=== PATIENT | male | born 1945 | race Caucasian/White ===

== ENCOUNTER 2024-11-04 17:20 | Observation (INO) | payer MEDICARE ==
[~2024-11-04] VITALS: Ht 172.7 cm; Wt 57.6 kg
[2024-11-04] MEDS: NS (Normal Saline) 0.9% 1,000 ML IV ONE (18:20)
[2024-11-04 18:26] LABS: VENOUS BASE EXCESS -8.9 (-2.0-2.0); VENOUS HCO3 18.5 MMOL/L (23.0-27.0); VENOUS O2 SATURATION 66.2 % (60.0-80.0); VENOUS PARTIAL PRESSURE CO2 46.2 mmHg (38.0-50.0); VENOUS PARTIAL PRESSURE O2 38.9 mmHg (30.0-50.0); VENOUS PH 7.220 UNITS (7.330-7.430); VENOUS STANDARD HCO3 16.8 MMOL/L; VENOUS TOTAL CO2 19.9 MMOL/L (24.0-28.0)
[2024-11-04 18:30] LABS: BASO # 0.0 10^3/uL (0.0-0.2); BASO % 0.5 % (0.0-1.0); EOS # 0.1 10^3/uL (0.0-0.5); EOS % 1.6 % (0.0-3.0); LYMPH # 0.9 10^3/uL (1.5-5.0); LYMPH % 15.8 % (24.0-44.0); MONO # 0.6 10^3/uL (0.0-0.8); MONO % 10.6 % (2.0-8.0); NEUTROPHILS # 3.9 10^3/uL (1.5-8.5); NEUTROPHILS % 70.8 % (36.0-66.0); PLATELET COUNT, AUTOMATED 232 10^3/uL (150-450)
[2024-11-04] MEDS: PIPERACILLIN/TAZOBACTAM SOD 4.5 GM in DEXTROSE 5% (D5W) ADV/MINI-BAG 50 ML IV ONE (18:30)
[2024-11-04 18:35] LABS: INR 0.95
[2024-11-04 18:40] LABS: APPEARANCE, URINE CLOUDY (CLEAR); BACTERIA, URINE AUTO 2+ (NEGATIVE); BILIRUBIN, URINE AUTO NEGATIVE (NEGATIVE); BLOOD, URINE BLOOD NEGATIVE (NEGATIVE); GLUCOSE, URINE (UA) AUTO NEGATIVE (NEGATIVE); KETONE, URINE AUTO NEGATIVE (NEGATIVE); LEUKOCYTE ESTERASE, URINE AUTO 2+ (NEGATIVE); MUCUS, URINE SMALL (NEGATIVE); NITRITE, URINE AUTO POSITIVE (NEGATIVE); PROTEIN, URINE AUTO 1+ mg/dL (NEGATIVE); RBC, URINE AUTO 0 /HPF (0-3); SPECIFIC GRAVITY URINE AUTO 1.012 (1.002-1.035); SQUAMOUS EPITHELIAL CELL UR AU 0 /HPF (0-6); UROBILINOGEN, URINE AUTO 0.2 mg/dL (0.0-2.0); WBC, URINE AUTO 10 /HPF (0-3)
[2024-11-04 19:01] LABS: CK-MB VALUE MASS 3.2 NG/ML (<3.6)
[2024-11-04 19:02] LABS: C REACTIVE PROTEIN QUANTITATIV < 0.50 MG/DL (<1.0); CPK CREATINE PHOSPHOKINASE 26 U/L (46-171); MB/CK RELATIVE INDEX 12.30 (< OR =4)
[2024-11-04 19:12] LABS: ALT/SGPT < 9 U/L (7.0-40); AST/SGOT 13 U/L (<34); CALCIUM LEVEL 7.6 MG/DL (8.3-10.6); CARBON DIOXIDE LEVEL 20 MMOL/L (20-31); CHLORIDE LEVEL 109 MMOL/L (98-107); CREATININE FOR GFR 1.12 MG/DL (0.70-1.30); GLOMERULAR FILTRATION RATE 66.8 (>42); POTASSIUM SERUM 2.7 MMOL/L (3.5-5.1); SODIUM LEVEL 145 MMOL/L (136-145)
[2024-11-04] MEDS ORDERED: VANCOMYCIN HCL 1,000 MG in IV FLUID PLACE HOLDER 1 EA IV ONE (19:20)
[2024-11-04] MEDS: [UNRECOGNIZED DRUG - OTHER] IV ONE (19:49)
[2024-11-04] MEDS: NS 0.9% IV ONE (19:49)
[2024-11-04] MEDS: MAG SULF 1GM/100ML (MAG RUN) 1 GM in IV 1 EA IV ONE (19:50)
[2024-11-04] MEDS: KCL 10MEQ/100ML SWI (KRUN) 10 MEQ in IV 1 EA IV ONE (19:52)
[2024-11-04 19:54] LABS: CK-MB VALUE MASS 2.6 NG/ML (<3.6)
[2024-11-04 19:58] LABS: CPK CREATINE PHOSPHOKINASE 34 U/L (46-171); MB/CK RELATIVE INDEX 7.64 (< OR =4)
[2024-11-04] MEDS: VANCOMYCIN HCL 1,000 MG, VIAL MATE ADAPTER 1 EACH in NS 250 ML IV ONE (20:01)
[2024-11-04] MEDS: POTASSIUM CHLORIDE 10% LIQ 20MEQ/15ML UDC PO ONE (20:03)
[2024-11-04] MEDS: NS 500 ML IV ONE (22:00)
[2024-11-04] MEDS ORDERED: D31000CA5 PO (22:12)
[2024-11-04] MEDS ORDERED: POTA-151 PO (22:12)
[2024-11-04] MEDS ORDERED: FURO20TA2 PO (22:12)
[2024-11-04] MEDS ORDERED: CALC0.5C6 PO (22:12)
[2024-11-04] MEDS ORDERED: LOPE1CAP5 PO (22:12)
[2024-11-04] MEDS ORDERED: HOME MED LIST COMPLETE! XX SCH (22:15)
[2024-11-04] MEDS ORDERED: MOM 30 ML SUSPENSION UDC PO PRN (22:50)
[2024-11-04] MEDS ORDERED: MAALOX 30 ML SUSP *UDC PO PRN (22:50)
[2024-11-05] MEDS: ceFAZolin SOD 1 GM in DEXTROSE 5% (D5W) ADV/MINI-BAG 50 ML IV SCH (00:30)
[2024-11-05 04:49] VITALS: BP 109/64; TEMP 97.2; O2SAT 97
[2024-11-05 06:13] LABS: PLATELET COUNT, AUTOMATED 228 10^3/uL (150-450)
[2024-11-05 07:03] LABS: CALCIUM LEVEL 7.4 MG/DL (8.3-10.6); CARBON DIOXIDE LEVEL 19.0 MMOL/L (20-31); CHLORIDE LEVEL 113.0 MMOL/L (98-107); CREATININE FOR GFR 1.02 MG/DL (0.70-1.30); GLOMERULAR FILTRATION RATE 74.8 (>42); POTASSIUM SERUM 3.7 MMOL/L (3.5-5.1); SODIUM LEVEL 147.0 MMOL/L (136-145)
[2024-11-05 07:16] VITALS: BP 116/66; TEMP 97; O2SAT 100
[2024-11-05] MEDS: DOCUSATE SODIUM 100 MG CAPSULE PO SCH (08:53)
[2024-11-05] MEDS: POTASSIUM CHLORIDE 10MEQ SR TABLET PO SCH (08:53)
[2024-11-05] MEDS: HEPARIN SOD 5000 UNITS/ML 1 ML VIAL/SYRINGE SC SCH (08:54)
[2024-11-05 15:34] VITALS: BP 112/56; TEMP 97.2; O2SAT 98
[2024-11-05] MEDS: KETOROLAC 30 MG/ML 1 ML VIAL IV ONE (19:00)
[2024-11-05 20:03] VITALS: BP 110/57; TEMP 97.7; O2SAT 97
[2024-11-05] MEDS: LIDOCAINE 5% PATCH TD ONE (21:37)
[2024-11-05] MEDS: ACETAMINOPHEN 325 MG TAB PO PRN (21:39)
[2024-11-06 05:10] VITALS: BP 100/64; TEMP 97.5; O2SAT 95
[2024-11-06 06:46] LABS: BASO # 0.0 10^3/uL (0.0-0.2); BASO % 0.9 % (0.0-1.0); EOS # 0.1 10^3/uL (0.0-0.5); EOS % 2.0 % (0.0-3.0); LYMPH # 0.8 10^3/uL (1.5-5.0); LYMPH % 17.5 % (24.0-44.0); MONO # 0.4 10^3/uL (0.0-0.8); MONO % 9.6 % (2.0-8.0); NEUTROPHILS # 3.2 10^3/uL (1.5-8.5); NEUTROPHILS % 69.3 % (36.0-66.0); PLATELET COUNT, AUTOMATED 211 10^3/uL (150-450)
[2024-11-06 07:05] LABS: ALT/SGPT 10.0 U/L (7.0-40); AST/SGOT 15.0 U/L (<34); CALCIUM LEVEL 6.9 MG/DL (8.3-10.6); CARBON DIOXIDE LEVEL 21.0 MMOL/L (20-31); CHLORIDE LEVEL 113.0 MMOL/L (98-107); CREATININE FOR GFR 0.96 MG/DL (0.70-1.30); GLOMERULAR FILTRATION RATE 80.4 (>42); MAGNESIUM LEVEL 1.4 MG/DL (1.8-2.4); POTASSIUM SERUM 3.4 MMOL/L (3.5-5.1); SODIUM LEVEL 145.0 MMOL/L (136-145)
[2024-11-06 12:05] VITALS: BP 99/64; TEMP 97.5; O2SAT 96
[2024-11-06] MEDS: POTASSIUM CHLORIDE 10MEQ SR TABLET PO ONE (14:45)
[2024-11-06] MEDS: MAG SULF 1GM/100ML (MAG RUN) 1 GM in IV 1 EA IV SCH (14:46)
[2024-11-06 20:13] VITALS: BP 116/71; TEMP 97.7; O2SAT 99
[2024-11-07 04:40] VITALS: BP 102/61; TEMP 97; O2SAT 96
[2024-11-07 06:03] LABS: BASO # 0.0 10^3/uL (0.0-0.2); BASO % 0.5 % (0.0-1.0); EOS # 0.1 10^3/uL (0.0-0.5); EOS % 1.8 % (0.0-3.0); LYMPH # 1.0 10^3/uL (1.5-5.0); LYMPH % 17.9 % (24.0-44.0); MONO # 0.5 10^3/uL (0.0-0.8); MONO % 8.8 % (2.0-8.0); NEUTROPHILS # 3.9 10^3/uL (1.5-8.5); NEUTROPHILS % 70.1 % (36.0-66.0); PLATELET COUNT, AUTOMATED 225 10^3/uL (150-450)
[2024-11-07 06:26] LABS: ALT/SGPT < 9 U/L (7.0-40); AST/SGOT 11 U/L (<34); CALCIUM LEVEL 7.1 MG/DL (8.3-10.6); CARBON DIOXIDE LEVEL 17 MMOL/L (20-31); CHLORIDE LEVEL 117 MMOL/L (98-107); CREATININE FOR GFR 0.93 MG/DL (0.70-1.30); GLOMERULAR FILTRATION RATE 83.5 (>42); MAGNESIUM LEVEL 1.8 MG/DL (1.8-2.4); POTASSIUM SERUM 4.0 MMOL/L (3.5-5.1); SODIUM LEVEL 148 MMOL/L (136-145)
[2024-11-07] MEDS ORDERED: LOPERAMIDE 2 MG CAPLET PO PRN (08:15)
[2024-11-07] MEDS: MIDODRINE 5 MG TAB PO SCH (08:41)
[2024-11-07 11:27] VITALS: BP 100/68; TEMP 97.6; O2SAT 73
[2024-11-07 11:30] VITALS: O2SAT 90
[2024-11-07 16:20] VITALS: BP 110/59; TEMP 97.8; O2SAT 98
[2024-11-07 20:16] VITALS: BP 109/67; TEMP 97; O2SAT 97
[2024-11-07] MEDS: CEFDINIR 300 MG CAP PO SCH (20:31)
[2024-11-08 04:38] VITALS: BP 108/66; TEMP 97.9; O2SAT 98
[2024-11-08 05:54] LABS: BASO # 0.0 10^3/uL (0.0-0.2); BASO % 0.8 % (0.0-1.0); EOS # 0.1 10^3/uL (0.0-0.5); EOS % 1.8 % (0.0-3.0); LYMPH # 0.9 10^3/uL (1.5-5.0); LYMPH % 17.4 % (24.0-44.0); MONO # 0.4 10^3/uL (0.0-0.8); MONO % 8.7 % (2.0-8.0); NEUTROPHILS # 3.6 10^3/uL (1.5-8.5); NEUTROPHILS % 70.7 % (36.0-66.0); PLATELET COUNT, AUTOMATED 222 10^3/uL (150-450)
[2024-11-08 06:17] LABS: CORTISOL AM 15.9 UG/DL (4.3-22.4)
[2024-11-08 06:22] LABS: CALCIUM LEVEL 6.8 MG/DL (8.3-10.6); CARBON DIOXIDE LEVEL 18.0 MMOL/L (20-31); CHLORIDE LEVEL 116.0 MMOL/L (98-107); CREATININE FOR GFR 0.93 MG/DL (0.70-1.30); GLOMERULAR FILTRATION RATE 83.5 (>42); POTASSIUM SERUM 4.3 MMOL/L (3.5-5.1); SODIUM LEVEL 145.0 MMOL/L (136-145)
[2024-11-08 08:17] VITALS: BP 109/65
[2024-11-08] MEDS ORDERED: CEFD300CAP PO (10:58)
[2024-11-08] MEDS ORDERED: TORS10TA3 PO (10:58)
[2024-11-08] MEDS ORDERED: MIDO5TA PO (10:58)
[2024-11-08 12:00] VITALS: BP 100/61; TEMP 97.7; O2SAT 94
== END 2024-11-08 13:05 | disposition home or self-care (01) ==
LOC: M ED 17:20 → M ED INP 17:21 → M PCU 11-05 04:48 → M MSPAV 11-05 15:24
PROVIDERS: ADMIT Student in an Organized Health Care Education/Training Program; ATTEND Internal Medicine Nephrology
DX: R60.0 Localized edema (principal); M79.89 Other specified soft tissue disorders; I87.8 Other specified disorders of veins; I87.2 Venous insufficiency (chronic) (peripheral); R53.83 Other fatigue; R68.83 Chills (without fever); I95.89 Other hypotension; L89.152 Pressure ulcer of sacral region, stage 2; S91.001D Unspecified open wound, right ankle, subsequent encounter; X58.XXXD Exposure to other specified factors, subsequent encounter; R26.89 Other abnormalities of gait and mobility; Z93.6 Other artificial openings of urinary tract status; Z93.3 Colostomy status; E87.20 Acidosis, unspecified; E87.6 Hypokalemia; E83.42 Hypomagnesemia; E46 Unspecified protein-calorie malnutrition; D64.9 Anemia, unspecified; Z85.09 Personal history of malignant neoplasm of other digestive organs; Z95.818 Presence of other cardiac implants and grafts; Z79.899 Other long term (current) drug therapy; Z66 Do not resuscitate
CPT/HCPCS: 36415; 71045; 80048; 80053; 80076; 81001; 82150; 82533; 82550; 82553; 82803; 83605; 83735; 84145; 84484; 85025; 85027; 85610; 85652; 85730; 86140; 86850; 86900; 86901; 87040; 87086; 87486; 87581; 87633; 87798; 93005; 93041; 93306; 93970; 94760; 96365; 96366; 96367; 96368; 96372; 96376; 97161; 97165; 97530; 97535; 99291; 99292; G0378; J0690; J2543; J3373; J3475

== ENCOUNTER 2024-11-11 22:49 | Inpatient (IN) | payer MEDICARE ==
[~2024-11-11] VITALS: Ht 172.7 cm; Wt 47.1 kg
[~2024-11-11 22:49] MED LIST: CALC0.5C6 PO; CEFD300CAP PO; D31000CA5 PO; FURO20TA2 PO; LOPE1CAP5 PO; MIDO5TA PO; POTA-151 PO; TORS10TA3 PO
[2024-11-11 23:55] LABS: APPEARANCE, URINE CLEAR (CLEAR); BACTERIA, URINE AUTO NEGATIVE (NEGATIVE); BILIRUBIN, URINE AUTO NEGATIVE (NEGATIVE); BLOOD, URINE BLOOD NEGATIVE (NEGATIVE); GLUCOSE, URINE (UA) AUTO NEGATIVE (NEGATIVE); KETONE, URINE AUTO NEGATIVE (NEGATIVE); LEUKOCYTE ESTERASE, URINE AUTO NEGATIVE (NEGATIVE); MUCUS, URINE SMALL (NEGATIVE); NITRITE, URINE AUTO POSITIVE (NEGATIVE); PROTEIN, URINE AUTO NEGATIVE (NEGATIVE); RBC, URINE AUTO 0 /HPF (0-3); SPECIFIC GRAVITY URINE AUTO 1.004 (1.002-1.035); SQUAMOUS EPITHELIAL CELL UR AU 0 /HPF (0-6); UROBILINOGEN, URINE AUTO 0.2 mg/dL (0.0-2.0); WBC, URINE AUTO 0 /HPF (0-3)
[2024-11-12] VITALS (9 sets, daily range): BP systolic 76–97; BP diastolic 40–64; TEMP 96–97.6; O2SAT 91–98
[2024-11-12 00:14] LABS: C REACTIVE PROTEIN QUANTITATIV < 0.50 MG/DL (<1.0)
[2024-11-12 00:26] LABS: BASO # 0.0 10^3/uL (0.0-0.2); BASO % 0.1 % (0.0-1.0); EOS # 0.0 10^3/uL (0.0-0.5); EOS % 0.0 % (0.0-3.0); LYMPH # 0.4 10^3/uL (1.5-5.0); LYMPH % 5.1 % (24.0-44.0); MONO # 0.4 10^3/uL (0.0-0.8); MONO % 4.5 % (2.0-8.0); NEUTROPHILS # 7.1 10^3/uL (1.5-8.5); NEUTROPHILS % 90.0 % (36.0-66.0); PLATELET COUNT, AUTOMATED 150 10^3/uL (150-450)
[2024-11-12 00:32] LABS: ALT/SGPT 10 U/L (7.0-40); AST/SGOT 29 U/L (<34); CALCIUM LEVEL 8.4 MG/DL (8.3-10.6); CARBON DIOXIDE LEVEL 20 MMOL/L (20-31); CHLORIDE LEVEL 105 MMOL/L (98-107); CREATININE FOR GFR 1.13 MG/DL (0.70-1.30); GLOMERULAR FILTRATION RATE 66.1 (>42); POTASSIUM SERUM 5.0 MMOL/L (3.5-5.1); SODIUM LEVEL 139 MMOL/L (136-145)
[2024-11-12 00:42] LABS: INR 1.02
[2024-11-12] MEDS ORDERED: DEXTROSE 50% 50 ML SYRINGE IV PRN (01:15)
[2024-11-12] MEDS ORDERED: GLUCAGON INJ 1 MG VIAL SC PRN (01:15)
[2024-11-12] MEDS ORDERED: GLUCOSE 4 GM CHEW PO PRN (01:15)
[2024-11-12 01:19] LABS: VENOUS BASE EXCESS -8.0 (-2.0-2.0); VENOUS HCO3 18.0 MMOL/L (23.0-27.0); VENOUS O2 SATURATION 91.2 % (60.0-80.0); VENOUS PARTIAL PRESSURE CO2 38.8 mmHg (38.0-50.0); VENOUS PARTIAL PRESSURE O2 70.2 mmHg (30.0-50.0); VENOUS PH 7.285 UNITS (7.330-7.430); VENOUS STANDARD HCO3 17.8 MMOL/L; VENOUS TOTAL CO2 19.2 MMOL/L (24.0-28.0)
[2024-11-12] MEDS: NS (Normal Saline) 0.9% 1,000 ML IV ONE (01:28)
[2024-11-12] MEDS: PIPERACILLIN/TAZOBACTAM SOD 4.5 GM in DEXTROSE 5% (D5W) ADV/MINI-BAG 50 ML IV ONE (01:29)
[2024-11-12] MEDS: DEXTROSE 50% 50 ML SYRINGE IV STA (01:29)
[2024-11-12 01:52] LABS: ERYTHROCYTE SEDIMENTATION RATE 17 mm/hr (0-20)
[2024-11-12] MEDS: VANCOMYCIN HCL 1,250 MG, VIAL MATE ADAPTER 1 EACH in NS 250 ML IV ONE (02:14)
[2024-11-12] MEDS: NS 0.9% IV ONE (02:14)
[2024-11-12] MEDS: [UNRECOGNIZED DRUG - OTHER] IV ONE (02:14)
[2024-11-12] MEDS ORDERED: TORS10TA3 PO (02:15)
[2024-11-12] MEDS ORDERED: FOLI1TAB11 PO (02:15)
[2024-11-12] MEDS ORDERED: CALC0.5C6 PO (02:15)
[2024-11-12] MEDS ORDERED: MIDO5TA PO (02:15)
[2024-11-12] MEDS ORDERED: HOME MED LIST COMPLETE! XX SCH (02:15)
[2024-11-12] MEDS ORDERED: MOM 30 ML SUSPENSION UDC PO PRN (02:55)
[2024-11-12] MEDS ORDERED: MAALOX 30 ML SUSP *UDC PO PRN (02:55)
[2024-11-12] MEDS ORDERED: ACETAMINOPHEN 325 MG TAB PO PRN (02:55)
[2024-11-12] MEDS: HYDROCORTISONE 100 MG/2 ML VIAL IV ONE (03:08)
[2024-11-12 03:09] LABS: MAGNESIUM LEVEL 1.3 MG/DL (1.8-2.4)
[2024-11-12] MEDS: MIDODRINE 5 MG TAB PO SCH (03:09)
[2024-11-12] MEDS: D5W/LR 1,000 ML IV SCH (03:11)
[2024-11-12 03:16] LABS: CK-MB VALUE MASS 2.7 NG/ML (<3.6); CPK CREATINE PHOSPHOKINASE 49 U/L (46-171); MB/CK RELATIVE INDEX 5.51 (< OR =4)
[2024-11-12 03:24] LABS: D-DIMER QUANT > 20.00 ug/mL (<0.5)
[2024-11-12] MEDS ORDERED: ISOVUE-370 76% 100 ML VIAL As Ordered ONE (04:24)
[2024-11-12] MEDS: MAGNESIUM OXIDE 400 MG TAB PO ONE (06:39)
[2024-11-12] MEDS: ENOXAPARIN 60 MG/0.6 ML SYRINGE (J1650 PER 10MG) SC SCH (06:39)
[2024-11-12] MEDS: NICOTINE 21 MG/24 HR 1 EA TRANSDERMAL TD ONE (06:40)
[2024-11-12] MEDS: MAG SULF 1GM/100ML (MAG RUN) 1 GM in IV 1 EA IV SCH ×2 (06:53→11:56)
[2024-11-12 07:49] LABS: ALT/SGPT < 9 U/L (7.0-40); AST/SGOT 11 U/L (<34); CALCIUM LEVEL 7.2 MG/DL (8.3-10.6); CARBON DIOXIDE LEVEL 20 MMOL/L (20-31); CHLORIDE LEVEL 110 MMOL/L (98-107); CREATININE FOR GFR 1.13 MG/DL (0.70-1.30); GLOMERULAR FILTRATION RATE 66.1 (>42); MAGNESIUM LEVEL 1.2 MG/DL (1.8-2.4); POTASSIUM SERUM 3.3 MMOL/L (3.5-5.1); SODIUM LEVEL 141 MMOL/L (136-145)
[2024-11-12 07:55] LABS: BASO # 0.0 10^3/uL (0.0-0.2); BASO % 0.1 % (0.0-1.0); EOS # 0.0 10^3/uL (0.0-0.5); EOS % 0.0 % (0.0-3.0); LYMPH # 0.4 10^3/uL (1.5-5.0); LYMPH % 3.4 % (24.0-44.0); MONO # 0.7 10^3/uL (0.0-0.8); MONO % 5.3 % (2.0-8.0); NEUTROPHILS # 11.6 10^3/uL (1.5-8.5); NEUTROPHILS % 90.9 % (36.0-66.0); PLATELET COUNT, AUTOMATED 190 10^3/uL (150-450)
[2024-11-12] MEDS: DOCUSATE SODIUM 100 MG CAPSULE PO SCH (08:27)
[2024-11-12] MEDS ORDERED: ENOXAPARIN 40 MG/0.4 ML SYRINGE (J1650 PER 10MG) SC SCH (09:00)
[2024-11-12] MEDS: PIPERACILLIN/TAZOBACTAM SOD 4.5 GM in DEXTROSE 5% (D5W) ADV/MINI-BAG 50 ML IV SCH (09:38)
[2024-11-12] MEDS: VANCOMYCIN HCL 750 MG, VIAL MATE ADAPTER 1 EACH in NS 250 ML IV SCH (11:55)
[2024-11-12] MEDS: POTASSIUM CHLORIDE 10% LIQ 20MEQ/15ML UDC PO ONE (11:55)
[2024-11-12 12:27] LABS: CORTISOL AM > 150.0 UG/DL (4.3-22.4)
[2024-11-12 14:57] LABS: IRON (FE) 15 UG/DL (65-175); PERCENT SATURATION 7.8 % (19.7-50.0)
[2024-11-12 15:00] LABS: VITAMIN B12 LEVEL 451 PG/ML (211-911)
[2024-11-12 17:55] LABS: CALCIUM LEVEL 7.7 MG/DL (8.3-10.6); CARBON DIOXIDE LEVEL 19.0 MMOL/L (20-31); CHLORIDE LEVEL 110.0 MMOL/L (98-107); CREATININE FOR GFR 1.05 MG/DL (0.70-1.30); GLOMERULAR FILTRATION RATE 72.2 (>42); MAGNESIUM LEVEL 2.2 MG/DL (1.8-2.4); POTASSIUM SERUM 3.6 MMOL/L (3.5-5.1); SODIUM LEVEL 142.0 MMOL/L (136-145)
[2024-11-13] VITALS (22 sets, daily range): BP systolic 78–100; BP diastolic 44–66; TEMP 97–98; O2SAT 94–100
[2024-11-13 05:37] LABS: PLATELET COUNT, AUTOMATED 156 10^3/uL (150-450)
[2024-11-13 06:06] LABS: CORTISOL AM 18.3 UG/DL (4.3-22.4)
[2024-11-13 06:14] LABS: ALT/SGPT < 9 U/L (7.0-40); AST/SGOT 11 U/L (<34); CALCIUM LEVEL 7.2 MG/DL (8.3-10.6); CARBON DIOXIDE LEVEL 20 MMOL/L (20-31); CHLORIDE LEVEL 110 MMOL/L (98-107); CREATININE FOR GFR 1.06 MG/DL (0.70-1.30); GLOMERULAR FILTRATION RATE 71.4 (>42); MAGNESIUM LEVEL 2.3 MG/DL (1.8-2.4); POTASSIUM SERUM 2.9 MMOL/L (3.5-5.1); SODIUM LEVEL 142 MMOL/L (136-145)
[2024-11-13] MEDS: POTASSIUM CHLORIDE 10% LIQ 20MEQ/15ML UDC PO ONE (06:49)
[2024-11-13 08:14] LABS: VANCOMYCIN RANDOM 21.8 UG/ML
[2024-11-13] MEDS: KCL 40MEQ IN D5/NS 1000ML 1,000 ML IV SCH (09:06)
[2024-11-13] MEDS: POTASSIUM CHLORIDE 10MEQ SR TABLET PO SCH (09:06)
[2024-11-14] VITALS (31 sets, daily range): BP systolic 96–119; BP diastolic 50–77; TEMP 97–97.5; O2SAT 90–100
[2024-11-14 08:34] LABS: BASO # 0.0 10^3/uL (0.0-0.2); BASO % 0.1 % (0.0-1.0); EOS # 0.1 10^3/uL (0.0-0.5); EOS % 0.6 % (0.0-3.0); LYMPH # 0.6 10^3/uL (1.5-5.0); LYMPH % 5.8 % (24.0-44.0); MONO # 0.6 10^3/uL (0.0-0.8); MONO % 6.4 % (2.0-8.0); NEUTROPHILS # 8.4 10^3/uL (1.5-8.5); NEUTROPHILS % 86.6 % (36.0-66.0); PLATELET COUNT, AUTOMATED 182 10^3/uL (150-450)
[2024-11-14 09:09] LABS: ALT/SGPT < 9 U/L (7.0-40); AST/SGOT 10 U/L (<34); CALCIUM LEVEL 7.0 MG/DL (8.3-10.6); CARBON DIOXIDE LEVEL 19 MMOL/L (20-31); CHLORIDE LEVEL 116 MMOL/L (98-107); CREATININE FOR GFR 1.10 MG/DL (0.70-1.30); GLOMERULAR FILTRATION RATE 68.3 (>42); POTASSIUM SERUM 3.9 MMOL/L (3.5-5.1); SODIUM LEVEL 147 MMOL/L (136-145)
[2024-11-14] MEDS: NEOSPORIN OINT 0.9 GM PKT TOP ONE (16:24)
[2024-11-14 20:17] LABS: C REACTIVE PROTEIN QUANTITATIV 8.39 MG/DL (<1.0)
[2024-11-14] MEDS: cefTRIAXone SOD 2 GM in DEXTROSE 5% (D5W) ADV/MINI-BAG 50 ML IV SCH (20:44)
[2024-11-14] MEDS ORDERED: VANCOMYCIN HCL 500 MG in DEXTROSE 5% (D5W) MINI-BAG PLU 100 ML IV SCH (21:00)
[2024-11-15] VITALS (25 sets, daily range): BP systolic 98–125; BP diastolic 55–68; TEMP 97.2–98.4; O2SAT 93–100
[2024-11-15 05:32] LABS: PLATELET COUNT, AUTOMATED 196 10^3/uL (150-450)
[2024-11-15 05:57] LABS: CALCIUM LEVEL 7.1 MG/DL (8.3-10.6); CARBON DIOXIDE LEVEL 18.0 MMOL/L (20-31); CHLORIDE LEVEL 117.0 MMOL/L (98-107); CREATININE FOR GFR 1.06 MG/DL (0.70-1.30); GLOMERULAR FILTRATION RATE 71.4 (>42); POTASSIUM SERUM 4.4 MMOL/L (3.5-5.1); SODIUM LEVEL 145.0 MMOL/L (136-145)
[2024-11-15 08:45] LABS: C REACTIVE PROTEIN QUANTITATIV 6.76 MG/DL (<1.0)
[2024-11-15] MEDS: ONDANSETRON 4MG 2ML VIAL IV ONE (09:39)
[2024-11-16] VITALS (21 sets, daily range): BP systolic 101–121; BP diastolic 56–63; TEMP 97.1–98.5; O2SAT 6–100
[2024-11-16 05:34] LABS: BASO # 0.0 10^3/uL (0.0-0.2); BASO % 0.4 % (0.0-1.0); EOS # 0.1 10^3/uL (0.0-0.5); EOS % 0.7 % (0.0-3.0); LYMPH # 1.0 10^3/uL (1.5-5.0); LYMPH % 15.0 % (24.0-44.0); MONO # 0.4 10^3/uL (0.0-0.8); MONO % 5.8 % (2.0-8.0); NEUTROPHILS # 5.4 10^3/uL (1.5-8.5); NEUTROPHILS % 77.4 % (36.0-66.0); PLATELET COUNT, AUTOMATED 193 10^3/uL (150-450)
[2024-11-16 06:05] LABS: C REACTIVE PROTEIN QUANTITATIV 4.08 MG/DL (<1.0); CALCIUM LEVEL 7.4 MG/DL (8.3-10.6); CARBON DIOXIDE LEVEL 21.0 MMOL/L (20-31); CHLORIDE LEVEL 114.0 MMOL/L (98-107); CREATININE FOR GFR 1.01 MG/DL (0.70-1.30); GLOMERULAR FILTRATION RATE 75.7 (>42); MAGNESIUM LEVEL 1.7 MG/DL (1.8-2.4); POTASSIUM SERUM 4.8 MMOL/L (3.5-5.1); SODIUM LEVEL 146.0 MMOL/L (136-145)
[2024-11-16] MEDS: MAGNESIUM OXIDE 400 MG TAB PO ONE (08:22)
[2024-11-16] MEDS: TORSEMIDE 10 MG TABLET PO SCH (08:23)
[2024-11-16] MEDS: CEFDINIR 300 MG CAP PO SCH (10:23)
[2024-11-17 05:08] VITALS: BP 103/60; TEMP 98.1; O2SAT 99
[2024-11-18 04:07] VITALS: BP 111/66; TEMP 98.7; O2SAT 97
[2024-11-18 07:19] LABS: PLATELET COUNT, AUTOMATED 184 10^3/uL (150-450)
[2024-11-18] MEDS: MIRALAX *UNIT DOSE* 17 GM PACKET PO ONE (16:29)
[2024-11-18 18:58] LABS: BASO # 0.0 10^3/uL (0.0-0.2); BASO % 0.2 % (0.0-1.0); EOS # 0.1 10^3/uL (0.0-0.5); EOS % 0.9 % (0.0-3.0); LYMPH # 0.9 10^3/uL (1.5-5.0); LYMPH % 17.5 % (24.0-44.0); MONO # 0.3 10^3/uL (0.0-0.8); MONO % 6.2 % (2.0-8.0); NEUTROPHILS # 4.0 10^3/uL (1.5-8.5); NEUTROPHILS % 74.6 % (36.0-66.0); PLATELET COUNT, AUTOMATED 205 10^3/uL (150-450)
[2024-11-18 19:18] LABS: C REACTIVE PROTEIN QUANTITATIV 1.12 MG/DL (<1.0)
[2024-11-18 19:24] LABS: ALT/SGPT < 9 U/L (7.0-40); AST/SGOT 15 U/L (<34); CALCIUM LEVEL 7.8 MG/DL (8.3-10.6); CARBON DIOXIDE LEVEL 26 MMOL/L (20-31); CHLORIDE LEVEL 102 MMOL/L (98-107); CREATININE FOR GFR 1.05 MG/DL (0.70-1.30); GLOMERULAR FILTRATION RATE 72.2 (>42); POTASSIUM SERUM 5.3 MMOL/L (3.5-5.1); SODIUM LEVEL 136 MMOL/L (136-145)
[2024-11-18] MEDS: RAMELTEON 8 MG TAB PO PRN (21:25)
[2024-11-18] MEDS: SENNOSIDES/DOCUSATE SODIUM 8.6 MG/50MG TAB PO SCH (21:25)
[2024-11-19 05:09] VITALS: BP 86/46; TEMP 98.1; O2SAT 98
[2024-11-19] MEDS: MAGNESIUM OXIDE 400 MG TAB PO SCH (09:08)
[2024-11-19] MEDS: GASTROGRAFIN SOLUTION 30ML PO SCH (17:08)
[2024-11-19 22:00] VITALS: O2SAT 94
[2024-11-20 00:01] VITALS: BP 102/56; TEMP 97.7; O2SAT 94
[2024-11-20] MEDS: VITAMIN D 1,000 INTERNATIONAL UNITS TABLET PO SCH (08:03)
[2024-11-20] MEDS: ENOXAPARIN 40 MG/0.4 ML SYRINGE (J1650 PER 10MG) SC SCH (08:04)
[2024-11-21 07:07] LABS: PLATELET COUNT, AUTOMATED 158 10^3/uL (150-450)
[2024-11-22 06:06] VITALS: BP 96/56; TEMP 97.7; O2SAT 98
[2024-11-22 06:36] LABS: PLATELET COUNT, AUTOMATED 209 10^3/uL (150-450)
[2024-11-23 06:00] VITALS: BP 102/53; TEMP 97.8; O2SAT 95
[2024-11-24 03:38] VITALS: BP 102/68; TEMP 97.9; O2SAT 94
[2024-11-24 06:00] LABS: PLATELET COUNT, AUTOMATED 258 10^3/uL (150-450)
[2024-11-24] MEDS: VANICREAM MOISTURIZING SKIN CREAM 113GM TUBE TOP SCH (12:54)
[2024-11-25 04:00] VITALS: BP 102/50; TEMP 98.1; O2SAT 99
[2024-11-25 06:45] LABS: PLATELET COUNT, AUTOMATED 239 10^3/uL (150-450)
[2024-11-26 03:53] VITALS: BP 102/60; TEMP 97.9; O2SAT 98
[2024-11-27 04:03] VITALS: BP 108/64; TEMP 97.7; O2SAT 97
[2024-11-27 12:15] VITALS: BP 96/59
[2024-11-28 00:36] VITALS: BP 105/62; TEMP 97.7; O2SAT 99
[2024-11-28 05:45] VITALS: O2SAT 99
[2024-11-28 06:39] LABS: PLATELET COUNT, AUTOMATED 334 10^3/uL (150-450)
[2024-11-29 00:26] VITALS: BP 108/66; TEMP 98.1; O2SAT 99
[2024-11-29 04:27] VITALS: O2SAT 99
[2024-11-29] MEDS: ONDANSETRON 4MG ORAL DISINTEGRATING TAB PO PRN (23:48)
[2024-11-30 04:09] VITALS: BP 120/79; TEMP 98.2; O2SAT 96
[2024-11-30 20:21] VITALS: BP 111/57; TEMP 98; O2SAT 96
[2024-12-01 03:28] VITALS: BP 110/58; TEMP 97.5; O2SAT 98
[2024-12-01 06:38] LABS: PLATELET COUNT, AUTOMATED 299 10^3/uL (150-450)
[2024-12-01 12:00] VITALS: BP 102/61; TEMP 97.9; O2SAT 97
[2024-12-01 19:51] VITALS: BP 101/65; TEMP 98.3; O2SAT 95
[2024-12-02 06:31] VITALS: BP 101/64; TEMP 97.7; O2SAT 96
[2024-12-02 16:00] VITALS: BP 110/65
[2024-12-03 03:20] VITALS: BP 101/55; TEMP 97.9; O2SAT 96
[2024-12-03 09:12] LABS: BASO # 0.0 10^3/uL (0.0-0.2); BASO % 0.4 % (0.0-1.0); EOS # 0.1 10^3/uL (0.0-0.5); EOS % 2.5 % (0.0-3.0); LYMPH # 0.9 10^3/uL (1.5-5.0); LYMPH % 19.5 % (24.0-44.0); MONO # 0.6 10^3/uL (0.0-0.8); MONO % 12.2 % (2.0-8.0); NEUTROPHILS # 3.1 10^3/uL (1.5-8.5); NEUTROPHILS % 65.2 % (36.0-66.0); PLATELET COUNT, AUTOMATED 324 10^3/uL (150-450)
[2024-12-03 09:22] LABS: CALCIUM LEVEL 7.8 MG/DL (8.3-10.6); CARBON DIOXIDE LEVEL 32.0 MMOL/L (20-31); CHLORIDE LEVEL 99.0 MMOL/L (98-107); CREATININE FOR GFR 0.96 MG/DL (0.70-1.30); GLOMERULAR FILTRATION RATE 80.4 (>42); POTASSIUM SERUM 4.2 MMOL/L (3.5-5.1); SODIUM LEVEL 139.0 MMOL/L (136-145)
[2024-12-03] MEDS ORDERED: OXYC10TA12 PO (09:55)
[2024-12-03 23:59] VITALS: BP 114/68; TEMP 98.1; O2SAT 97
[2024-12-05 06:09] VITALS: BP 105/63; TEMP 98.1; O2SAT 98
[2024-12-06 06:14] VITALS: BP 99/52; TEMP 98.1; O2SAT 96
[2024-12-06 11:59] VITALS: BP 97/54
== END 2024-12-06 13:16 | DRG 299 ==
LOC: M ED 22:49 → M ED INP 11-12 02:51 → MERGE 11-12 02:51 → M PCU 11-12 05:39 → M MSPAV 11-16 22:17
PROVIDERS: ADMIT Family Medicine; ATTEND Student in an Organized Health Care Education/Training Program
PROC: 06HM33Z Insertion of Infusion Device into Right Femoral Vein, Percutaneous Approach (ICD-10-PCS; principal; 2024-11-12)
DX: I87.1 Compression of vein (principal); E43 Unspecified severe protein-calorie malnutrition; L89.154 Pressure ulcer of sacral region, stage 4; L03.114 Cellulitis of left upper limb; R64 Cachexia; E87.20 Acidosis, unspecified; E27.40 Unspecified adrenocortical insufficiency; E87.3 Alkalosis; I50.32 Chronic diastolic (congestive) heart failure; N13.30 Unspecified hydronephrosis; N13.4 Hydroureter; K82.1 Hydrops of gallbladder; I95.89 Other hypotension; E87.5 Hyperkalemia; E83.42 Hypomagnesemia; E88.09 Other disorders of plasma-protein metabolism, not elsewhere classified; M85.80 Other specified disorders of bone density and structure, unspecified site; F17.290 Nicotine dependence, other tobacco product, uncomplicated; Z66 Do not resuscitate; E16.2 Hypoglycemia, unspecified; I87.2 Venous insufficiency (chronic) (peripheral); D50.9 Iron deficiency anemia, unspecified; R60.1 Generalized edema; H91.93 Unspecified hearing loss, bilateral; E87.6 Hypokalemia; I87.8 Other specified disorders of veins; I11.0 Hypertensive heart disease with heart failure; E87.70 Fluid overload, unspecified; G89.29 Other chronic pain; R26.9 Unspecified abnormalities of gait and mobility; M54.9 Dorsalgia, unspecified; K59.00 Constipation, unspecified; R19.7 Diarrhea, unspecified; Z92.21 Personal history of antineoplastic chemotherapy; Z92.3 Personal history of irradiation; Z93.3 Colostomy status; G47.00 Insomnia, unspecified; Z95.828 Presence of other vascular implants and grafts; Z93.6 Other artificial openings of urinary tract status; Z85.038 Personal history of other malignant neoplasm of large intestine; Z79.899 Other long term (current) drug therapy